=== PATIENT | female | born 1940 | race Caucasian/White ===

== ENCOUNTER 2016-12-15 20:21 | Emergency (ER) | payer OTHER ==
[~2016-12-15] VITALS: Ht 165.1 cm; Wt 90.7 kg
--- NOTE | ~2016-12-15 | EKG ---
[place] [address] [facility] [place] [address] ELECTROCARDIOGRAM REPORT Name: MICHELE PAYNE [id number] Admission: 12/15/16 Attend Phys: Discharge: Date of : 44 Report #: [id number] THIS REPORT FOR: //name// [facility] ED Test Date: 2016-12-15 Test Time: 20:42:47 Pat Name: MICHELE PAYNE Department: Room: Gender: F Guide Winder: [id number] : 1940 Requested By: Erik Cain Order Number: [id number] MD: Horacio Samaniego Measurements Intervals [place] Rate: 80 P: 37 AR: 234 QRS: -5 QRSD: 140 T: 147 QT: 446 QTc: 515 Interpretive Statements Sinus rhythm Prolonged AR interval Probable left atrial enlargement IVCD, consider atypical LBBB No previous ECG available for comparison Electronically Signed On 12-15-2016 22:12:38 CDT by Horacio Samaniego [email or web address] <ELECTRONICALLY SIGNED> By: Horacio Samaniego MD 12/15/162211 41 41 Horacio Samaniego MD /MORRIS
[2016-12-15] MEDS ORDERED: K-DUR 20 MEQ T20 MEQ PO (21:44)
[2016-12-15] MEDS ORDERED: LASIX 40 MG TAB40 M2 PO (21:45)
[2016-12-15] MEDS ORDERED: COREG6.25 MG PO (21:45)
[2016-12-15] MEDS ORDERED: LISINOPRIL20 MG PO (21:46)
[2016-12-15 21:47] LABS: ABSOLUTE NEUTROPHILS 5.4 thou/uL (1.4-8.2); BASOPHILS 0.9 % (0.0-2.0); EOSINOPHILS 1.4 % (0.0-3.0); HEMATOCRIT 41.6 % (37.0-47.0); HEMOGLOBIN 13.7 gm/dL (12.0-15.0); LYMPHOCYTES 26.5 % (24.0-44.0); MCH 28.7 pg (26.0-34.0); MCHC 32.9 g/dL (28.0-37.0); MCV 87.3 fL (80.0-100.0); MONOCYTES 6.9 % (1.0-8.0); PLATELET COUNT 249 thou/uL (150-400); POLYS 64.3 % (36.0-66.0); RBC 4.76 mil/uL (4.20-5.00); RDW 13.8 % (10.5-14.5); WBC 8.3 thou/uL (4.0-11.0)
[2016-12-15] MEDS ORDERED: ASPIR 8181 M1 PO (21:47)
[2016-12-15 21:54] LABS: ANION GAP 10 mmol/L (7-16); BUN 16 mg/dL (7-18); CHLORIDE 105 mmol/L (98-107); CO2 26 mmol/L (21-32); GLUCOSE 134 mg/dL (74-106); SODIUM 141 mmol/L (136-145)
[2016-12-15 21:57] LABS: MANUAL DIFF NO
[2016-12-15 21:59] LABS: APTT 23.1 Seconds (24.5-32.8); PROTIME 10.2 Seconds (9.3-11.4)
[2016-12-15 22:02] LABS: ALBUMIN 3.5 g/dL (3.4-5.0); ALKALINE PHOSPHATASE 95 U/L (46-116); MAGNESIUM 1.9 mg/dL (1.8-2.4); SGOT 28 U/L (15-37); SGPT 33 U/L (30-65); TOTAL BILIRUBIN 0.3 mg/dL (<0.1-1.0); TOTAL PROTEIN 6.5 g/dL (6.4-8.2); TROPONIN-I < 0.04 ng/mL (<0.04-0.07)
[2016-12-15] MEDS ORDERED: VENTOLIN HFA 1818 GM INH (22:34)
[2016-12-15 23:13] VITALS: BP 124/78
== END 2016-12-15 23:15 | disposition home or self-care (01) ==
LOC: ER 20:21
PROVIDERS: Emergency Medicine
DX: I11.0 Hypertensive heart disease with heart failure (principal); I50.9 Heart failure, unspecified; F10.99 Alcohol use, unspecified with unspecified alcohol-induced disorder; Z98.890 Other specified postprocedural states; Z79.82 Long term (current) use of aspirin

== ENCOUNTER → 2018-05-04 | Outpatient (CLI) | payer OTHER ==
[~2018-05-04] MED LIST: ASPIR 8181 M1 PO; COREG6.25 MG PO; K-DUR 20 MEQ T20 MEQ PO; LASIX 40 MG TAB40 M2 PO; LISINOPRIL20 MG PO; VENTOLIN HFA 1818 GM INH
--- NOTE | 2018-05-04 16:06 | 2DMMODE ---
[facility] [address] [place] [address] 2 D/M-MODE ECHOCARDIOGRAM Name: MICHELE PAYNE [facility] Room #: REG [facility]#: [id number] ������������� Admission: 05/04/18 ������������� Attend Phys: Osmani Siddiqi MD Discharge: ��� ������������� ��� Date of : 44 Date of Service: 05/04/18 1606 �� Report #: [id number] �������� ��������������������������������������������[id number] THIS REPORT FOR: //name// APPROVED REPORT Study performed: 05/04/2018 14:56:23 EXAM: Comprehensive 2D, Doppler, and color-flow Echocardiogram Patient Location: Echo lab Room #: OP Status: routine BSA: 1.98 HR: 75 bpm BP: 174/90 mmHg Rhythm: LBBB Other Information Study Quality: Adequate Risk Factors: Cardiac Risk Factors: Hyperlipidemia, HTN Indications Cardiomyopathy 2D Dimensions IVSd: 10.66 (7-11mm) LVOT Diam: 20.00 (18-24mm) LVDd: 46.54 mm PWd: 12.68 (7-11mm) Ascending Ao: 33.15 (22-36mm) LVDs: 35.79 (25-40mm) Aortic Root: 26.83 mm LV Single Plane 4CH: 45.21 % LV Single Plane 2CH: 43.03 % Biplane EF: 42.9 % Volumes Left Atrial Volume (Systole) Single Plane 4CH: 53.32 mL Single Plane 2CH: 42.07 mL LA ESV Index: 26.00 mL/m2 Aortic Valve AoV Peak Ricardo.: 1.64 m/s AO Peak Gr.: 10.77 mmHg LVOT Max P.21 mmHg LVOT Max V: 0.90 m/s [facility] [address] [place] [address] 2 D/M-MODE ECHOCARDIOGRAM Name: ELMERJAYABECKY EDMOND Room #: REG [facility]#: [id number] ������������� Admission: 05/04/18 ������������� Attend Phys: Osmani Siddiqi MD Discharge: ��� ������������� ��� Date of : 44 Date of Service: 05/04/18 1606 �� Report #: [id number] �������� ��������������������������������������������[id number] JAKE Vmax: 1.63 cm2 Mitral Valve E/A Ratio: 0.8 MV Decel. Time: 168.34 ms MV E Max Ricardo.: 1.28 m/s MV A Ricardo.: 1.53 m/s MV PHT: 48.82 ms IVRT: 73.82 ms TDI E/Lateral E': 18.29 E/Medial E': 42.67 Medial E' Ricardo.: 0.03 m/s Lateral E' Ricardo.: 0.07 m/s Pulmonary Valve PV Peak Ricardo.: 1.47 m/s PV Peak Gr.: 8.68 mmHg Pulmonary Vein P Vein S: 0.43 m/s P Vein A: 0.29 m/s P Vein D: 0.33 m/s P Vein A Dur.: 110.7 msec P Vein S/D Ratio: 1.30 Tricuspid Valve TR Peak Ricardo.: 2.84 m/s RAP Estimate: 7.00 mmHg TR Peak Gr.: 32.37 mmHg PA Pressure: 39.00 mmHg Left Ventricle The left ventricle is normal size. There is hypokinesis of the mid to basal inferior segment. Mild concentric left ventricular hypertrophy. Left ventricular systolic function is mildly decreased. LVEF is 45%. Mild diastolic dysfunction is present (impaired relaxation pattern). Right Ventricle The right ventricle is normal size. The right ventricular systolic function is normal. Atria The left atrium size is normal. Right atrium is dilated. Aortic Valve The aortic valve is normal in structure. No aortic regurgitation is present. There is no aortic valvular stenosis. [address] [address] 2 D/M-MODE ECHOCARDIOGRAM Name: MICHELE PAYNE [facility] Room #: REG CL Mino#: [id number] ������������� Admission: 05/04/18 ������������� Attend Phys: Osmani Siddiqi MD Discharge: ��� ������������� ��� Date of : 44 Date of Service: 05/04/18 1606 �� Report #: [id number] �������� ��������������������������������������������[id number] Mitral Valve The mitral valve leaflets are calcified and thickened. Mild to moderate mitral regurgitation. No evidence of mitral valve stenosis. Tricuspid Valve The tricuspid valve is normal in structure. Mild tricuspid regurgitation. Pulmonary artery pressure is 39 mmHg. Pulmonic Valve The pulmonary valve is normal in structure. There is no pulmonic valvular regurgitation. Great Vessels The aortic root is normal in size. IVC is normal in size and collapses >50% with inspiration. Pericardium There is no pericardial effusion. <Conclusion> The left ventricle is normal size. Mild concentric left ventricular hypertrophy. Left ventricular systolic function is mildly decreased. There is hypokinesis of the mid to basal inferior segment. Mild diastolic dysfunction is present (impaired relaxation pattern). The right ventricle is normal size. The left atrium size is normal. The aortic valve is normal in structure. The mitral valve leaflets are calcified and thickened. Mild to moderate mitral regurgitation. Mild tricuspid regurgitation. Pulmonary artery pressure is 39 mmHg. ��������������������������������������������� <ELECTRONICALLY SIGNED> ���������������������������������������� By: Osmani Siddiqi MD ��������������������������������������������� 05/04/18 1606 1606 1606 Osmani Siddiqi MD /INF
== END ==
LOC: CV 11:05
DX: I08.1 Rheumatic disorders of both mitral and tricuspid valves (principal); I42.9 Cardiomyopathy, unspecified

== ENCOUNTER → 2019-05-13 | Outpatient (CLI) | payer MEDICARE | LOC: NUC 09:33 → SJCVCIMAG 13:01 | DX: I44.7 Left bundle-branch block, unspecified (principal); I44.0 Atrioventricular block, first degree; I25.10 Atherosclerotic heart disease of native coronary artery without angina pectoris; I11.0 Hypertensive heart disease with heart failure; I50.9 Heart failure, unspecified; I42.9 Cardiomyopathy, unspecified; Z87.891 Personal history of nicotine dependence; Z79.899 Other long term (current) drug therapy ==

== ENCOUNTER → 2019-06-07 | Outpatient (CLI) | payer OTHER ==
[~2019-06-07] VITALS: Ht 165.1 cm; Wt 90.7 kg
[2019-06-07 07:33] VITALS: BP 143/99
[2019-06-07 07:50] LABS: HEMOGLOBIN 14.3 gm/dL (12.0-15.0); MCHC 32.5 g/dL (28.0-37.0); MCV 89.4 fL (80.0-100.0); RBC 4.92 mil/uL (4.20-5.00); RDW 13.6 % (10.5-14.5); WBC 9.4 thou/uL (4.0-11.0)
[2019-06-07 08:02] LABS: CALCIUM 8.1 mg/dL (8.5-10.1); CREATININE 0.9 mg/dL (0.6-1.0); POTASSIUM 3.6 mmol/L (3.5-5.1)
--- NOTE | 2019-06-07 08:13 | EKG ---
[facility] [place] [address] ELECTROCARDIOGRAM REPORT Name: MICHELE PAYNE Room #: REG [facility]..#: [id number] Admission: 06/07/19 Attend Phys: Osmani Siddiqi MD Discharge: Date of : 44 Report #: [id number] THIS REPORT FOR: cc: Yaron Rivas MD, Jeffrey A. MD Lundgren,Naveen Goel MD [facility] THIS REPORT FOR: //name// [facility] Test Date: 2019-06-07 Test Time: 07:31:44 Pat Name: MICHELE PAYNE Department: Room: Gender: Rpg Programmer Analyst: Magy QUIÑONES : 1940 Requested By: Osmani Siddiqi Order Number: [id number] MD: Naveen Kingston Measurements Intervals [place] Rate: 74 P: 45 OR: 253 QRS: -19 QRSD: 151 T: 140 QT: 477 QTc: 530 Interpretive Statements Sinus rhythm Prolonged OR interval Left bundle branch block Compared to ECG 12/15/2016 20:42:47 No significant changes Electronically Signed On 06-07-2019 8:12:32 CDT by Naveen Kingston [email or web address] <ELECTRONICALLY SIGNED> By: Naveen Kingston MD, FACC 06/07/19 0812 0 Naveen Kingston MD, [facility] /EPI
--- NOTE | 2019-06-07 13:05 | CATHLAB ---
[facility] [place] [address] INVASIVE PROCEDURE REPORT Name: MICHELE PAYNE FELI Room #: REG MELISSA [facility].#: [id number] Admission: 06/07/19 Attend Phys: Osmani Siddiqi MD Discharge: Date of : 44 Report #: [id number] THIS REPORT FOR: cc: Yaron Rivas MD, Jeffrey A. MD Park, Jin S. MD ~ APPROVED REPORT Study performed: 06/07/2019 08:34:52 Patient Details Patient Status: Out-Patient Room #: The patient is a 78 year-old female Event Personnel Osmani Siddiqi Cement Car Dumper, Karine Camarena RN RN, Dario Caban RTR Harvey Hogan Sherra RTR Monitor Procedures Performed Art Access - R radial artery Left Heart Cath w/or w/o Coronaries [id number] [facility] 17192 Initial Mod Sed Same Phys/QHP Gr5y 223907 78002 Mod Sed Same Phys/QHP Ea 453308 Hemostasis with Hemoband Indication Dyspnea, Positive stress test Risk Factors Obesity, HypercholesterolemiaPhysical Activity, Coronary Artery DiseaseHypertension Procedure Narrative The Right Wrist^ was infiltrated with 1% Lidocaine subcutaneous anesthesia. A TRANSRADIAL SLENDER 6F GLIDESHEATH KIT #[id number] sheath was inserted into the Right Radial Artery^. Coronary angiography was performed using coronary diagnostic catheters. The right coronary system was accessed and visualized with a 5FR JR 4 #[id number] catheter. The left coronary system was accessed and visualized with a 5FR JL 3.5 #[id number] catheter. The left ventricle was accessed and visualized with a 5FR PIG 145 ANGLED #[id number] catheter. Left ventriculogram was performed in 30 degree projection. The patient tolerated the procedure well and there were no complications associated with the procedure. There was no hematoma. [facility] [address] [place] [address] INVASIVE PROCEDURE REPORT Name: MICHELE PAYNE [facility] Room #: REG [facility]#: [id number] Admission: 06/07/19 Attend Phys: Osmani Siddiqi MD Discharge: Date of : 44 Report #: [id number] Intraoperative Conscious Sedation Sedation start time: 815 Case end Time: 900 Fentanyl 75 mcg Versed 1.5 mg Fluoro Time: 4.40 minutes Dose: DAP 7533.00 cGycm2 1091 mGy Contrast Type and Amount: Omnipaque 80 ml Coronary Angiography The patient's coronary anatomy is right dominant. Diagnostic Cath Left Main The left main artery is a large-caliber vessel, patent with no flow-limiting lesions. LAD The LAD is a moderate size caliber vessel, traversing the anterior wall and wrapping around the apex. There is mild disease in the proximal segment, 30%. Diagonal 1 This is a patent vessel, with no flow-limiting lesions. Circumflex This is a moderate size caliber vessel, with mild disease proximally, 20%. OM1 This is a moderate size caliber vessel, with a high takeoff. This vessel is patent with no flow-limiting lesions. OM2 This is a moderate size caliber vessel, patent with mild disease in the midsegment. 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 The distal vessels are filled via bridging collaterals and collaterals from the left coronary artery. Left Ventriculography The left ventricle is normal in size with decreased contractility. The left ventricular ejection fraction is estimated to be 45%. Left ventricular wall motion abnormalities are present. There is hypokinesis of the inferior wall. Hemodynamics The aortic pressure is 152/72 mmHg with a mean of 105 mmHg. The left ventricular pressure is 142/4 mmHg with a mean of mmHg. The left ventricular end diastolic pressure is 13 mmHg. Conclusion 1. 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 2. There is mild disease in the LAD and left circumflex arteries. 3. There is mild segmental LV dysfunction. [facility] [address] [place] [address] INVASIVE PROCEDURE REPORT Name: MICHELE PAYNE Room #: REG M.R.#: [id number] Admission: 06/07/19 Attend Phys: Osmani Siddiqi MD Discharge: Date of : 44 Report #: [id number] 4. Recommend guideline directed medical therapy and risk factor management. <ELECTRONICALLY SIGNED> By: Osmani Siddiqi MD 06/07/19 1304 1304 1304 Osmani Siddiqi MD /INF
== END ==
LOC: CATH 07:09
PROVIDERS: Internal Medicine Cardiovascular Disease
DX: R94.39 Abnormal result of other cardiovascular function study (principal); R06.00 Dyspnea, unspecified; E66.9 Obesity, unspecified; E78.00 Pure hypercholesterolemia, unspecified; I10 Essential (primary) hypertension; I11.0 Hypertensive heart disease with heart failure; I50.9 Heart failure, unspecified; I25.10 Atherosclerotic heart disease of native coronary artery without angina pectoris; I42.9 Cardiomyopathy, unspecified; Z87.891 Personal history of nicotine dependence

== ENCOUNTER → 2020-01-10 | Outpatient (CLI) | payer OTHER | LOC: SJCVC 09:35 | PROVIDERS: ATTEND Internal Medicine Cardiovascular Disease | DX: I44.0 Atrioventricular block, first degree (principal); I45.4 Nonspecific intraventricular block; R94.31 Abnormal electrocardiogram [ECG] [EKG]; I25.10 Atherosclerotic heart disease of native coronary artery without angina pectoris; I42.9 Cardiomyopathy, unspecified; I10 Essential (primary) hypertension; E78.00 Pure hypercholesterolemia, unspecified; E78.5 Hyperlipidemia, unspecified; Z79.82 Long term (current) use of aspirin; Z79.899 Other long term (current) drug therapy; Z87.891 Personal history of nicotine dependence ==

== ENCOUNTER → 2020-07-10 | Outpatient (CLI) | payer OTHER | LOC: SJCVCIMAG 11:23 | PROVIDERS: ATTEND Internal Medicine Cardiovascular Disease | DX: R94.31 Abnormal electrocardiogram [ECG] [EKG] (principal); I08.1 Rheumatic disorders of both mitral and tricuspid valves; I44.0 Atrioventricular block, first degree; I45.4 Nonspecific intraventricular block; I42.9 Cardiomyopathy, unspecified; I25.10 Atherosclerotic heart disease of native coronary artery without angina pectoris; I11.9 Hypertensive heart disease without heart failure; E78.00 Pure hypercholesterolemia, unspecified; E78.5 Hyperlipidemia, unspecified; Z79.82 Long term (current) use of aspirin; Z79.899 Other long term (current) drug therapy; Z87.891 Personal history of nicotine dependence; Z72.89 Other problems related to lifestyle ==

== ENCOUNTER → 2020-08-01 | Outpatient (CLI) | payer OTHER | LOC: SJCVC 15:12 | PROVIDERS: ATTEND Internal Medicine Cardiovascular Disease | DX: I42.9 Cardiomyopathy, unspecified (principal); I34.0 Nonrheumatic mitral (valve) insufficiency; I25.10 Atherosclerotic heart disease of native coronary artery without angina pectoris; I44.7 Left bundle-branch block, unspecified ==

== ENCOUNTER → 2020-08-07 | Outpatient (CLI) | payer OTHER | LOC: SJCVC 13:52 | PROVIDERS: ATTEND Internal Medicine Cardiovascular Disease | DX: I44.7 Left bundle-branch block, unspecified (principal); I49.3 Ventricular premature depolarization; I44.0 Atrioventricular block, first degree; I25.10 Atherosclerotic heart disease of native coronary artery without angina pectoris; I10 Essential (primary) hypertension; I42.9 Cardiomyopathy, unspecified; E78.00 Pure hypercholesterolemia, unspecified; M19.90 Unspecified osteoarthritis, unspecified site; R60.0 Localized edema; E78.5 Hyperlipidemia, unspecified; Z79.82 Long term (current) use of aspirin; Z79.899 Other long term (current) drug therapy; Z87.891 Personal history of nicotine dependence ==